=== PATIENT | male | born 1990 ===

== ENCOUNTER 2024-05-23 07:56 | Emergency (ER) | payer OTHER ==
[~2024-05-23] VITALS: Ht 172.7 cm; Wt 63.5 kg
[2024-05-23] MEDS ORDERED: Ketorolac Tromethamine 30mg Vial IV ONE (08:10)
[2024-05-23] MEDS ORDERED: Norco 5-325 Ta1 EACH PO (08:51)
[2024-05-23] MEDS ORDERED: IBUP800 PO (08:51)
== END 2024-05-23 10:52 | disposition home or self-care (01) ==
LOC: ER 07:56
DX: S42.001A Fracture of unspecified part of right clavicle, initial encounter for closed fracture (principal); V43.52XA Car driver injured in collision with other type car in traffic accident, initial encounter
CPT/HCPCS: 73000; J1885